=== PATIENT | male | born 1975 | race Caucasian/White ===

== ENCOUNTER 2022-09-01 23:01 | Emergency (ER) | payer OTHER ==
[2022-09-01] MEDS ORDERED: Ondansetron 4 MG/2 ML SDV IVPUSH ONE (23:09)
[2022-09-01] MEDS ORDERED: Sodium Chloride 0.9% 1,000 ML IV SCH (23:15)
[2022-09-01] MEDS ORDERED: Glucagon,Human Recombinant 1 MG Vial IM PRN (23:26)
[2022-09-01] MEDS ORDERED: Insulin Regular, Human 100 Units/ML 3 ML Vial IVPUSH ONE (23:26)
[2022-09-01] MEDS ORDERED: 50% Dextrose in Water 50 ML Syringe IVPUSH PRN (23:26)
[2022-09-01 23:48] LABS: ESTIMATED GFR 92 mL/min (>60)
[2022-09-02] MEDS ORDERED: Sodium Chloride 0.9% 1,000 ML IV SCH (00:15)
[2022-09-02] MEDS ORDERED: 50% Dextrose in Water 50 ML Syringe IVPUSH PRN (01:27)
[2022-09-02] MEDS ORDERED: Glucagon,Human Recombinant 1 MG Vial IM PRN (01:27)
[2022-09-02] MEDS ORDERED: Insulin Regular, Human 100 Units/ML 3 ML Vial IVPUSH ONE (01:27)
== END 2022-09-02 02:06 ==
LOC: JP.ED 23:01
DX: E11.65 Type 2 diabetes mellitus with hyperglycemia (principal); E11.00 Type 2 diabetes mellitus with hyperosmolarity without nonketotic hyperglycemic-hyperosmolar coma (NKHHC); F10.920 Alcohol use, unspecified with intoxication, uncomplicated; Y90.6 Blood alcohol level of 120-199 mg/100 ml; Z79.4 Long term (current) use of insulin
CPT/HCPCS: 36415; 80053; 80305; 80307; 81001; 82009; 82803; 82947; 83690; 85025; 96361; 96374; 99285; J1815; J2405; J7030